=== PATIENT | female | born 1955 | race Caucasian/White ===

== ENCOUNTER 2019-10-20 07:22 | Emergency (ER) | payer MEDICARE, MEDICAID, SELFPAY ==
[2019-10-20 07:13] VITALS: BP 166/87; PULSE 78; RESP 20; TEMP 36.5; O2SAT 96; BMI 29.5
[2019-10-20 07:15] VITALS: PULSE 79; RESP 16; O2SAT 94
--- NOTE | 2019-10-20 07:18 | XR_ITS ---
WS: [id number] XR chest 1V portable [id number] REASON FOR EXAM: dyspnea/cough FINDINGS: Alveolar infiltrates in the basilar portions of both lower lungs. The heart is enlarged. A subclavian stent is seen in position on the right side unchanged since previous exam December 27, 2018. XR/XR chest 1V portable [id number] IMPRESSION: Patchy pneumonia is basilar portion both lower lungs.
--- NOTE | 2019-10-20 07:25 | ECG_ITS ---
Measurements Intervals [place] Rate: 95 P: [place]: 0 QRS: 164 QRSD: 216 T: -24 QT: 470 QTc: 591 ATRIAL FIBRILLATION WITH ABERRANT CONDUCTION OR VENTRICULAR PREMATURE COMPLEXES RIGHT AXIS DEVIATION [QRS AXIS > 100] RIGHT BUNDLE BRANCH BLOCK [120+ ms QRS DURATION, UPRIGHT V1, 40+ ms S IN I/aVL I/aVL/V4/V5/V6] PROBABLE ANTEROSEPTAL MYOCARDIAL INFARCTION , PROBABLY OLD [35 ms Q WAVE IN V1-V4] Compared to ECG 12/27/2018 14:18:36 Right bundle-branch block now present Myocardial infarct finding now present ST (T wave) deviation now present Sinus rhythm no longer present Electronically Signed On 10-20-2019 18:21:58 CDT by Thierry Sandy M.D. [email or web address]
--- NOTE | 2019-10-20 07:31 | ED_ITS ---
HPI - SOB/Dyspnea General: Chief Complaint: Shortness of Breath/Dyspnea Stated Complaint: Resp distress/fall 2 days ago History of Present Illness: HPI Narrative: 62-year-old female brought in from [facility] where she is a resident. She has history end-stage renal disease is on dialysis. Overnight she began to have more severe shortness of breath EMS reports she was in the 70s when she was first encountered she normally is on room air. There is no documented history of chronic respiratory issues. She denies any chest pain she initially was placed on a rebreather on arrival here she is 9697% and mildly tachypneic. She did state that she fell 3 days ago and hit the right side of her head. Uncertain if there is a loss of consciousness she is not had any vomiting per EMS report or [facility] report. When I initially evaluated the patient she was minimally responsive. She was started on BiPAP based on history of report. MD elicited complaint: shortness of breath Pertinent past history: diabetes Associated symptoms: Deny chest pain Review of Systems General: Reports: ROS unobtainable due to medical condition Card: Denies: chest pain Resp: Reports: shortness of breath [facility] ED PFSH: Medical History (Updated 10/22/19 @ 09:49 by Nabil Boyd DO) Anemia of chronic disease AV fistula End-stage renal disease needing dialysis Essential hypertension Gastroesophageal reflux disease Obstructive sleep apnea Thrombocytopenia Tubal ligation evaluation Type 2 diabetes mellitus Surgical History (Updated 10/20/19 @ 09:37 by Nabil Boyd DO) History of mandibular surgery Social History Smoking and tobacco status: former smoker Physical Exam Const: GENERAL APPEARANCE: in distress (Moderate respiratory distress), lethargic and ill appearing NUTRITIONAL APPEARANCE: obese ORIENTATION/CONSCIOUSNESS: Yes confused and Yes lethargic HENMT: OTHER: There is bruising along the lateral aspect of the right superior orbital ridge no swelling no depressions or deformity. There is no crepitus with palpation along the superior orbital ridge or in the inferior orbital ridge. There is no subconjunctival hemorrhage. No erythema no significant swelling. Resp: EFFORT & INSPECTION: Yes symmetric chest movement, Yes tachypneic, Yes respiratory distress, Yes labored, Yes uses accessory muscles and Yes tripod positioning AUSCULTATION: rhonchi, wheezes and diminished lung sounds Cardio: COMMON NORMALS: regular rate and regular rhythm RATE: regular rate RHYTHM: regular rhythm GI: COMMON NORMALS: soft to palpation and no hepatosplenomegaly AUSCULTATION: Yes normoactive bowel sounds PALPATION: Yes soft, No tender, No guarding and Yes no hepatosplenomegaly Extremity: COMMON NORMALS: normal to inspection and normal capillary refill GENERAL: Yes edema (Mild lower extremity edema) Neuro: SENSORIUM/ORIENTATION: Yes lethargic Course Vital Signs: Vital signs: Vital Signs Temperature 97.7 F 10/20/19 07:13 Pulse Rate 79 10/20/19 07:15 Respiratory Rate 20 H 10/20/19 07:13 Blood Pressure 166/87 10/20/19 07:13 Pulse Oximetry 94 10/20/19 07:15 MDM - SOB/Dyspnea MDM Narrative: Medical decision making narrative: Patient initially seen the report from EMS that she is in the 70s on her oxygen sat when they arrived that improved with application of a nonrebreather. On initial assessment the only thing I could really get from me that she denied chest pain. She is a known end-stage renal disease patient patient was immediately started on BiPAP and her sats improved however she rapidly deteriorated her EKG initially showed a wide QRS with a bundle branch block is reviewing her blood gases initially seen her pH PO2 and PCO2 had plan to look at an old EKG however was called back to the room by the nurse the patient was rapidly deteriorating and was had become unresponsive. On my arrival in the room Ezequiel the patient in prone position gave orders to initiate RSI to intubate. As I laid the patient down noted that she had a unorganized rhythm on the rhythm strip she was nonresponsive and I found her to have no pulse. Patient appeared to be in PEA. Code was called. See the code sheet. We did have one brief time where we are able to get a rhythm and pressure back after patient be given amiodarone and several doses of epinephrine. While we are coding her reviewed the remainder of her blood gas and noted that the potassium in the blood gas was elevated at 9.4 later during the code serum resulted in was 9 6 creatinine of 10 to once we seen the elevated potassium on the blood gas we began with measures to alleviate her hyperkalemia. These measures were not successful. For a brief time we did have an organized pulse after a defib however the QRS developed widening and then she went back into PEA. Code was continued and I made contact with brother who has power of consumer attorney from [place] over some friends present with her in the emergency room. The brother asked that we stop resuscitative efforts while she was listed as being a full code he did not want to continue if she was going to be intubated stating that they had discussed this amongst themselves earlier. The code was stopped and patient was found to have a week heartbeat. This quickly deteriorated again into PEA and then asystole. Based on the brother's request to stop efforts and the patient severe hyperkalemia leading to arrhythmia the code was stopped at that point patient was extubated and NG tube removed. Frien ds were allowed at the bedside I did make another phone call to the brother and discussed with him again her condition. He was content with having stopped resuscitative efforts given her overall condition and the efforts that had been taken to that point. Lab Data: Labs: Lab Results 10/20/19 10/20/19 10/20/19 Range/Units 06:59 06:59 06:59 WBC 11.2 H (4.0-10.0) 10^3/ uL RBC 3.71 L (4.1-5.3) 10^6/u L Hgb 12.5 (11.5-15.3) g/dL Hct 41.5 (37.0-47.0) % MCV 111.9 H (81-99) fL MCH 33.7 (28.0-34.0) pg MCHC 30.1 (30.0-36.0) g/dL RDW 15.4 H (12.1-15.1) % Plt Count 200 (130-400) 10^3/c mm MPV 8.8 (7.4-10.4) fL Neut % (Auto) 74.3 % Lymph % (Auto) 14.9 % [place] % (Auto) 7.0 % Eos % (Auto) 3.0 % Baso % (Auto) 0.4 % Neut # (Auto) 8.3 H (1.8-7.7) 10^3/u L Lymph # (Auto) 1.7 (0.8-4.8) 10^3/u L [place] # (Auto) 0.8 (0.2-0.9) 10^3/u L Eos # (Auto) 0.3 (0.0-0.8) 10^3/u L Baso # (Auto) 0.1 (0.0-0.1) 10^3/u L Nucleated RBC % (a uto) 0 % Nucleated RBCs # 0.0 /100WBC Specimen Type Sample Site ABG pH (7.35-7.45) ABG pCO2 (35-45) mmHg ABG pO2 (80.0-100.0) mmH g ABG HCO3 (22-26) mmol/L ABG O2 Saturation ABG Base Excess (-2.0-2.0) mmol/ L Parmjit Test A-a O2 Gradient (5-10) mmHg Hematocrit (37-47) % Hgb O2 Saturation (95-100) % Carboxyhemoglobin (0.4-20.1) %THgb Methemoglobin (0.4-1.5) % Total Hemoglobin (12-16) g/dL O2 Delivery Device FiO2 % Quality Assurance Project Manager ID Sodium 134 L (136-145) mmol/L Potassium 9.6 H* (3.5-5.1) mmol/L Chloride 94 L (98-107) mmol/L Carbon Dioxide 22 (22-29) mmol/L Anion Gap 27.6 H (5-19) BUN 92 H* (8-23) mg/dL Creatinine 10.2 H* (0.5-0.9) mg/dL GFR Calculation 3.9 L (90-130) mL/min Glucose 114 (65-115) mg/dL Calculated Osmolal ity 279 L (285-295) mOsm/k g Calcium 10.5 (8.5-10.5) mg/dL Phosphorus 5.6 H (2.5-4.5) mg/dL Magnesium 4.2 H (1.7-2.3) mg/dL Total Bilirubin 0.3 (0.15-1.2) mg/dL AST 16 (0-32) U/L ALT 12 (0-33) U/L Alkaline Phosphata se 269 H (35-105) IU/L Creatine Kinase 99 (26-192) U/L Troponin T Baselin e (0-10) ng/mL NT-Pro-B Natriuret Pep 68330 H (0-125) pg/mL Total Protein 8.8 H (6.6-8.7) g/dL Albumin 4.7 (3.5-5.2) g/dL Globulin 4.1 (1.3-4.6) g/dL Serum Ketones Negative (Negative) 10/20/19 10/20/19 10/20/19 Range/Units 06:59 07:28 08:00 WBC (4.0-10.0) 10^3/ uL RBC (4.1-5.3) 10^6/u L Hgb (11.5-15.3) g/dL Hct (37.0-47.0) % MCV (81-99) fL MCH (28.0-34.0) pg MCHC (30.0-36.0) g/dL RDW (12.1-15.1) % Plt Count (130-400) 10^3/c mm MPV (7.4-10.4) fL Neut % (Auto) % Lymph % (Auto) % [place] % (Auto) % Eos % (Auto) % Baso % (Auto) % Neut # (Auto) (1.8-7.7) 10^3/u L Lymph # (Auto) (0.8-4.8) 10^3/u L [place] # (Auto) (0.2-0.9) 10^3/u L Eos # (Auto) (0.0-0.8) 10^3/u L Baso # (Auto) (0.0-0.1) 10^3/u L Nucleated RBC % (a uto) % Nucleated RBCs # /100WBC Specimen Type Arterial Arterial Sample Site Radial, left Not Reportable ABG pH 7.29 L 7.29 L (7.35-7.45) ABG pCO2 44.4 37.2 (35-45) mmHg ABG pO2 104.0 H 216.0 H* (80.0-100.0) mmH g ABG HCO3 21.4 L 17.9 L (22-26) mmol/L ABG O2 Saturation 97.4 99.6 ABG Base Excess -5.1 L -8.0 L (-2.0-2.0) mmol/ L Parmjit Test Pos Pos A-a O2 Gradient 122.0 H 434.0 H (5-10) mmHg Hematocrit 41.2 41.2 (37-47) % Hgb O2 Saturation 95.6 98.0 (95-100) % Carboxyhemoglobin 1.1 0.8 (0.4-20.1) %THgb Methemoglobin 0.7 0.8 (0.4-1.5) % Total Hemoglobin 13.5 13.5 (12-16) g/dL O2 Delivery Device Bipap Ambu FiO2 40.0 100.0 % Quality Assurance Project Manager ID [email or web address] Sodium 133.0 139.0 (136-145) mmol/L Potassium 9.6 H 8.6 H (3.5-5.1) mmol/L Chloride (98-107) mmol/L Carbon Dioxide (22-29) mmol/L Anion Gap (5-19) BUN (8-23) mg/dL Creatinine (0.5-0.9) mg/dL GFR Calculation (90-130) mL/min Glucose 120.0 H 187.0 H (65-115) mg/dL Calculated Osmolal ity (285-295) mOsm/k g Calcium (8.5-10.5) mg/dL Phosphorus (2.5-4.5) mg/dL Magnesium (1.7-2.3) mg/dL Total Bilirubin (0.15-1.2) mg/dL AST (0-32) U/L ALT (0-33) U/L Alkaline Phosphata se (35-105) IU/L Creatine Kinase (26-192) U/L Troponin T Baselin e 94 H (0-10) ng/mL NT-Pro-B Natriuret Pep (0-125) pg/mL Total Protein (6.6-8.7) g/dL Albumin (3.5-5.2) g/dL Globulin (1.3-4.6) g/dL Serum Ketones (Negative) Discharge Plan Discharge Patient Disposition: Clinical Impression: Hyperkalemia, Type 2 diabetes mellitus, Anemia of chronic disease, End-stage renal disease needing dialysis, Obstructive sleep apnea, Essential hypertension, Sudden cardiac due to cardiac arrhythmia Referrals: Bess Fonseca MD [Primary Care Provider] - Interventions: ED Discharge Assessment Last Done: 10/20/19 10:06 ED Charges Last Done: 10/20/19 10:06 Discharge Date/Time: 10/20/19 10:21 Coding Level of Care Code ED Business Support Professional for Chg Fwd Exam Comprehensive
--- NOTE | 2019-10-20 07:32 | PC.NURSE ---
Chest X-ray performed at bedside.
--- NOTE | 2019-10-20 07:33 | PC.NURSE ---
Rt at bedside for bi-pap and abg
[2019-10-20 07:37] LABS: Basophils # 0.1 10^3/uL (0.0-0.1); Basophils % 0.4 %; Eosinophils # 0.3 10^3/uL (0.0-0.8); Hematocrit 41.5 % (37.0-47.0); Hemoglobin 12.5 g/dL (11.5-15.3); Lymphocytes # 1.7 10^3/uL (0.8-4.8); Lymphocytes % 14.9 %; Mean Corpuscular HGB Conc 30.1 g/dL (30.0-36.0); Mean Corpuscular Hemoglobin 33.7 pg (28.0-34.0); Mean Corpuscular Volume 111.9 fL (81-99); Mean Platelet Volume 8.8 fL (7.4-10.4); Monocytes # 0.8 10^3/uL (0.2-0.9); Neutrophils # 8.3 10^3/uL (1.8-7.7); Neutrophils % 74.3 %; Nucleated Red Blood Cells % 0 %; Platelet Count 200 10^3/cmm (130-400); Red Blood Count 3.71 10^6/uL (4.1-5.3); Red Cell Distribution Width 15.4 % (12.1-15.1); White Blood Count 11.2 10^3/uL (4.0-10.0)
[2019-10-20 07:41] LABS: ABG PCO2 44.4 mmHg (35-45); ABG PH Result 7.29 (7.35-7.45); Arterial Blood Gas Hematocrit 41.2 % (37-47); Base Excess ABG -5.1 mmol/L (-2.0-2.0); Blood Gas Allen Test Pos; Blood Gas Sample Site Radial, left; Blood Gas Sample Type Arterial; Carboxyhemoglobin 1.1 %THgb (0.4-20.1); HCO3 ABG 21.4 mmol/L (22-26); HGB O2 Sat 95.6 % (95-100); Methemoglobin 0.7 % (0.4-1.5); Oxygen Device BIPAP; Oxygen Saturation ABG 97.4; Potassium Level - ABG 9.6 mmol/L (3.5-5.0); Total Hemoglobin 13.5 g/dL (12-16)
[2019-10-20] MEDS: EPINEPHrine 0.1 mg/mL SYR 10 mL 1 MG IVP ×7 (07:47→08:16)
[2019-10-20] MEDS: calcium chloride 10% Syr 10 mL 1 GM IVP (07:50)
[2019-10-20] MEDS: sodium bicarbonate 8.4% 1 mEq/mL 50mL Syr 50 MEQ IVP ×2 (07:53→08:05)
[2019-10-20] MEDS: insulin regular-human 100 units/1 mL 10 UNIT IVP (08:07)
[2019-10-20] MEDS: dextrose 50% syringe 50 mL IVP (08:08)
[2019-10-20] MEDS: calcium gluconate 0.1 gm/mL 10% SDV 10mL 2 GM IVP ×2 (08:09→08:14)
[2019-10-20 08:10] LABS: Troponin(5th) Baseline 94 ng/mL (0-10)
[2019-10-20] MEDS: vecuronium 10 mg SDV IVP (08:12)
[2019-10-20 08:13] LABS: Ketone (Acetest) Serum Negative (Negative)
[2019-10-20 08:19] LABS: Alanine Aminotransferase 12 U/L (0-33); Albumin Level 4.7 g/dL (3.5-5.2); Alkaline Phosphatase 269 IU/L (35-105); Anion Gap 27.6 (5-19); Aspartate Amino Transferase 16 U/L (0-32); Calcium 10.5 mg/dL (8.5-10.5); Carbon Dioxide 22 mmol/L (22-29); Chloride 94 mmol/L (98-107); Creatine Phosphokinase 99 U/L (26-192); Globulin 4.1 g/dL (1.3-4.6); Glomerular Filtration Rate 3.9 mL/min (90-130); Glucose 114 mg/dL (65-115); Magnesium 4.2 mg/dL (1.7-2.3); NT Pro B Type Natriuretic Pept 16421 pg/mL (0-125); Osmolality Calculated 279 mOsm/kg (285-295); Phosphorus 5.6 mg/dL (2.5-4.5); Sodium 134 mmol/L (136-145); Total Bilirubin 0.3 mg/dL (0.15-1.2); Total Protein 8.8 g/dL (6.6-8.7)
[2019-10-20 08:20] LABS: Blood Urea Nitrogen 92 mg/dL (8-23); Potassium 9.6 mmol/L (3.5-5.1)
[2019-10-20 08:32] LABS: ABG PCO2 37.2 mmHg (35-45); ABG PH Result 7.29 (7.35-7.45); Arterial Blood Gas Hematocrit 41.2 % (37-47); Blood Gas Allen Test Pos; Blood Gas Sample Type Arterial; Carboxyhemoglobin 0.8 %THgb (0.4-20.1); HCO3 ABG 17.9 mmol/L (22-26); Methemoglobin 0.8 % (0.4-1.5); Oxygen Device AMBU; Oxygen Saturation ABG 99.6; Potassium Level - ABG 8.6 mmol/L (3.5-5.0); Total Hemoglobin 13.5 g/dL (12-16)
--- NOTE | 2019-10-20 08:37 | PC.NURSE ---
Change of condition: Patient verbalized she felt nauseated. Bi-pap mask removed and NRB applied. Approximately 20 seconds later she became unresponsive and no pulse detected. CPR started @ -0746 Epinephrine 1 mg IVP @ 0747 Intubated 7.5 tube @ 0747 Epinephrine 1 mg IVP @ 0748 Calcium chloride 10 mg IVP @ 0750 Pulse check- No pulse- Chest compressions resumed @ 0751 Epinephrine 1 mg IVP @ 0751 Pulse check- No pulse-PEA- Chest compressions resumed @ 0752 Sodium Bicarb 1 amp @ 0753 Pulse check- No pulse- Chest compressions resumed @ 0754 Narcan 0.4 mg IVP @ 0755 Pulse check- No pulse- Chest compressions resumed @ 0757 V-fib shocked 120 J @ 0758 Compressions started immediately after shock. Pulse check- Pulse present at femoral. Rate 160 and strong @ 0759 Amiodarone 300 mg IVP @ 0802 Lost pulse- Compression resumed- Epinephrine 1 mg IVP @ 0803 Pulse check- No pulse- Chest compressions resumed @ 0805 Sodium Bicarb 1 amp @ 0805 Pulse check- No pulse- Chest compressions resumed @ 0806 Insulin 10 units IVP @ 0807 Pulse check- No pulse- Chest compressions resumed @ 0808 D-50 1 amp @ 0808 Pulse check- No pulse- Compression resumed @ 0809 Epinephrine 1 mg IVP @ 0809 Calcium gluconate 1 gram IVP @ 0809 Pulse check- No pulse- Compression resumed @ 0811 Vecuronium 10 mg IVP @ 0812 Amiodarone 150 mg IVP @ 0813 Pulse check- No pulse- Compression resumed @ 0813 Epinephrine 1 mg IVP @ 0813 Calcium gluconate 1 gram IVP @ 0814 Pulse check- No pulse- Compression resumed @ 0815 Etomidate 30 mg IVP @ 0815 Epinephrine 1 mg IVP @ 0816 Pulse check- No pulse- Compression resumed @ 0815 Pulse check- No pulse- Compression resumed @ 0819 Pulse check- No pulse- @ 0822 Time of : 821
--- NOTE | 2019-10-20 09:25 | ECG_ITS ---
Measurements Intervals [place] Rate: 149 P: [place]: 0 QRS: 89 QRSD: 204 T: -76 QT: 381 QTc: 601 Ventricular tachycardia with rapid response ACUTE AR INTERPRETATION BASED ON A DEFAULT AGE OF 40 YEARS Compared to ECG 12/27/2018 14:18:36 There is VT Electronically Signed On 10-20-2019 18:27:24 CDT by Thierry Sandy M.D. [email or web address]
== END 2019-10-20 10:21 | disposition expired ==
PROVIDERS: Emergency Provider Family Medicine; Family Provider Family Medicine; PCP Family Medicine
DX: I49.9 Cardiac arrhythmia, unspecified (principal); I46.2 Cardiac arrest due to underlying cardiac condition; E87.5 Hyperkalemia; I12.0 Hypertensive chronic kidney disease with stage 5 chronic kidney disease or end stage renal disease; E11.22 Type 2 diabetes mellitus with diabetic chronic kidney disease; N18.6 End stage renal disease; D63.1 Anemia in chronic kidney disease; Z99.2 Dependence on renal dialysis; G47.33 Obstructive sleep apnea (adult) (pediatric); Z87.891 Personal history of nicotine dependence
CPT/HCPCS: 12345; 36600; 71045; 80051; 80053; 82009; 82550; 82810; 83735; 83880; 83986; 84100; 84484; 85025; 93005; 94660; 96374; 96375; 99282; 99291; J0171; J0610; J1815; J3490